=== PATIENT | female | born 1980 | race Caucasian/White ===

== ENCOUNTER 2018-04-26 09:40 | Emergency (ER) | payer SELFPAY ==
--- NOTE | 2018-04-26 10:19 | ER Document Report ---
ED Medical Screen (RME) - General Chief Complaint: Vaginal Bleeding Stated Complaint: VAGINAL BLEEDING Time Seen by Provider: 04/26/18 10:14 Mode of Arrival: Ambulatory Information source: Patient Notes: 37-year-old female presents with complaint of vaginal bleeding that occurred after sexual activity. Patient reports a positive home test 5 days ago. She is unsure when her last menstrual period was. I have greeted and performed a rapid initial assessment of this patient. A comprehensive ED assessment and evaluation of the patient, analysis of test results and completion of medical decision making process we will be contacted by additional ED providers. PHYSICAL EXAMINATION: Vital signs reviewed GENERAL: Well-appearing, well-nourished and in no acute distress. LUNGS: No respiratory distress Musculoskeletal: Normal range of motion NEUROLOGICAL: Normal speech, normal gait. PSYCH: Normal mood, normal affect. SKIN: Warm, Dry, normal turgor, no rashes or lesions noted. TRAVEL OUTSIDE OF THE [place] IN LAST 30 DAYS: No - HPI Onset: Yesterday Onset/Duration: Sudden Quality of pain: Achy Associated Symptoms: Vaginal bleeding Similar symptoms previously: Yes Recently seen / treated by doctor: No - Related Data Smoking: Non-smoker Frequency of alcohol use: None Drug Abuse: None Allergies/Adverse Reactions: cefuroxime [From Ceftin] Allergy (Verified 04/26/18 09:44) meperidine [From Demerol] Allergy (Verified 04/26/18 09:44) prochlorperazine [From Compazine] Allergy (Verified 04/26/18 09:44) quinine Allergy (Verified 04/26/18 09:44) shellfish derived Allergy (Verified 04/26/18 09:44) Physical Exam - Vital signs Vitals: Temp Pulse Resp BP Pulse Ox 98.1 F 103 H 20 133/82 H 99 04/26/18 09:53 04/26/18 09:53 04/26/18 09:53 04/26/18 09:53 04/26/18 09:53 Course - Vital Signs Vital signs: Temp Pulse Resp BP Pulse Ox 98.1 F 103 H 20 133/82 H 99 04/26/18 09:53 04/26/18 09:53 04/26/18 09:53 04/26/18 09:53 04/26/18 09:53
[2018-04-26 11:17] LABS: APPEARANCE,URINE SLIGHTLY-CLOUDY; BILIRUBIN,URINE NEGATIVE (NEGATIVE); COLOR,URINE YELLOW; GLUCOSE, URINE NEGATIVE (NEGATIVE); KETONES,URINE NEGATIVE (NEGATIVE); LEUKOCYTE ESTERASE,URINE LARGE (NEGATIVE); NITRITE,URINE NEGATIVE (NEGATIVE); PROTEIN,URINE NEGATIVE (NEGATIVE); URINE SPECIFIC GRAVITY 1.008; UROBILINOGEN,URINE NEGATIVE mg/dL (<2.0)
--- NOTE | 2018-04-26 12:17 | ER Document Report ---
ED GI/ - General Chief Complaint: Vaginal Bleeding Stated Complaint: VAGINAL BLEEDING Time Seen by Provider: 04/26/18 10:14 Mode of Arrival: Ambulatory Notes: Patient is and had sexual relations this morning and noted some blood on her partner's penis. She also felt some "tightness" in the lower pelvic region of her abdomen. She did not have any further bleeding, but did notice some when she wiped over an ultrasound. Patient is not sure when her last period occurred. She had a couple of days of spotting February 09 in the same couple of days of spotting March 14. This is patient's seventh , she has 1 living child. Has had 4 miscarriages and 2 abortions. Patient has severe gastroparesis and has a G and a J-tube that she alternates placement and tube feedings. Does not tolerate food very well. TRAVEL OUTSIDE OF THE [place] IN LAST 30 DAYS: No - Related Data Allergies/Adverse Reactions: cefuroxime [From Ceftin] Allergy (Verified 04/26/18 09:44) meperidine [From Demerol] Allergy (Verified 04/26/18 09:44) prochlorperazine [From Compazine] Allergy (Verified 04/26/18 09:44) quinine Allergy (Verified 04/26/18 09:44) shellfish derived Allergy (Verified 04/26/18 09:44) Past Medical History - General Information source: Patient Last Menstrual Period: 03/14/18 - Social History Smoking Status: Never Smoker Chew tobacco use (# tins/day): No Frequency of alcohol use: None Drug Abuse: None Family History: Reviewed & Not Pertinent Patient has suicidal ideation: No Patient has homicidal ideation: No Neurological Medical History: Reports: Hx Seizures - not currently on medication GI Medical History: Reports: Other - Gastroparesis for which she has a GJ tube. Review of Systems - Review of Systems Notes: REVIEW OF SYSTEMS: CONSTITUTIONAL : Denies fever. EENT: Denies eye, ear, nose or mouth or throat pain or other symptoms. CARDIOVASCULAR: Denies chest pain. RESPIRATORY: Denies cough, chest congestion, or shortness of breath. GASTROINTESTINAL: See HPI. GENITOURINARY: See HPI. MUSCULOSKELETAL: Denies back or neck pain. Denies joint pain or swelling. SKIN: Denies rash or skin lesions. NEUROLOGICAL: Denies LOC or altered mental status. Denies headache. Denies sensory loss or motor deficits. ALL OTHER SYSTEMS REVIEWED AND NEGATIVE. Physical Exam - Vital signs Vitals: Temp Pulse Resp BP Pulse Ox 98.1 F 103 H 20 133/82 H 99 04/26/18 09:53 04/26/18 09:53 04/26/18 09:53 04/26/18 09:53 04/26/18 09:53 Interpretation: Normal Notes: PHYSICAL EXAMINATION: GENERAL: Well-appearing, in no acute distress. Vital signs are all HEAD: Atraumatic, normocephalic. EYES: Pupils equal round and reactive to light, extraocular movements intact. NECK: Normal range of motion, supple. LUNGS: Breath sounds clear and equal bilaterally. HEART: Regular rate and rhythm without murmurs. ABDOMEN: Soft, nontender. No guarding or rebound. No masses. BACK: No tenderness throughout entire back. EXTREMITIES: Normal range of motion without pain. NEUROLOGICAL: Normal speech, normal gait. Normal sensory, motor, and reflex exams. Awake, alert, and oriented x3. Cranial nerves normal. PSYCH: Normal mood, normal affect. SKIN: Warm, dry, no rashes. Course - Re-evaluation Re-evalutation: 04/26/18 12:38 Quantitative hCG is 3131. Blood type O+. - Vital Signs Vital signs: Temp Pulse Resp BP Pulse Ox 98.1 F 103 H 20 133/82 H 99 04/26/18 09:53 04/26/18 09:53 04/26/18 09:53 04/26/18 09:53 04/26/18 09:53 - Laboratory Laboratory results interpreted by me: 04/26/18 04/26/18 09:50 11:33 Beta HCG, Quant 3131.30 H Urine Blood LARGE H Ur Leukocyte Esterase LARGE H Urine HCG, Qual POSITIVE H - Diagnostic Test Radiology reviewed: Image reviewed, Reports reviewed - Patient's ultrasound shows a 6-week gestation with a living IUP, heart rate 84, otherwise normal findings. Discharge - Discharge Clinical Impression: , Vaginal spotting Condition: Stable Disposition: HOME, SELF-CARE Additional Instructions: : You are . care is best started as early in as possible. If you're unsure about continuing this , you should discuss this with your physician or with dialer at [facility]. You should take only medications approved by your physician. Acetaminophen can safely be taken for minor pains. As a rule, medication for chronic conditions such as asthma or seizures can safely be continued. You should discuss with the physician every medicine you take. Any regular exercise program can be continued. Talk to your physician, however, before engaging in competitive or demanding sports. Alcohol, smoking, and "street drugs" are dangerous to your baby. Cocaine is especially dangerous. Don't use any illicit drugs! BLEEDING DURING EARLY : You have been evaluated for passing blood while . While we take this symptom very seriously, most women with your degree of bleeding will go on to have a perfectly normal baby. At this time, there is no indication that a miscarriage will occur. (A miscarriage occurs when the fetus is abnormal. There is no medicine or treatment to prevent it.) A more serious cause of bleeding is tubal (or ectopic) . An ultrasound usually can show whether the is in the uterus or in the tube. Sometimes in early , no fetus is seen. In this case, careful follow-up, including repeat blood tests and repeat ultrasound, is necessary. Do not douche or have sex for at least a week, or until OK'd by the doctor. Don't use tampons. Call the doctor or return for re-examination if there is an increase in bleeding or cramping, extreme weakness, fainting, new abdominal pain, fever, or passage of tissue. THREATENED MISCARRIAGE: You have been evaluated for a possible miscarriage. At this time, there is no indication that a miscarriage will occur. Most women with your symptoms will go on to have a perfectly normal baby. However, careful observation will be necessary. A miscarriage occurs when the fetus is abnormal. There is no medicine or treatment for it. You should rest in bed until the symptoms have resolved. Do not douche or have sex for at least a week, or until OK'd by the doctor. Call the doctor or return for re-examination if there is an increase in bleeding or cramping, or passage of tissue. Your ultrasound shows a living fetus in the uterus. Heart rate of 84, which is slightly low and of questionable significance. No other abnormalities. There advised not to participate in sexual activity for 10-14 days. Follow-up with OB. FOLLOW-UP CARE: If you have been referred to a physician for follow-up care, call the physicians office for an appointment as you were instructed or within the next two days. If you experience worsening or a significant change in your symptoms (very heavy bleeding with large clots of blood, passage of tissue, more severe abdominal / pelvic pain or cramping, feeling faint or severe weakness, fever, etc.), notify the physician immediately or return to the Emergency Department at any time for re-evaluation. OBSTETRIC-GYNECOLOGIC (OB-CONTROL ROOM HELPER) PHYSICIANS IN [place]: [facility] [address] [place] [address] [phone]
--- NOTE | 2018-04-26 12:20 | RADIOLOGY REPORT (SQ) ---
EXAM DESCRIPTION: U/S OB TRANSVAGINAL W/O DOP COMPLETED DATE/TIME: 04/26/2018 12:06 pm REASON FOR STUDY: bleeding + preg COMPARISON: None. TECHNIQUE: Transvaginal static and realtime grayscale images acquired of the pelvis. Additional matthew cted spectral and color Doppler images recorded. All images stored on PACs. bHCG: Not available. CLINICAL DATES: Unknown. LIMITATIONS: None. FINDINGS: FETUS: Single Living intrauterine . ULTRASOUND EGA: 6 week 0 day. ULTRASOUND RODRIGO: 12/20/2018. EFW: Not applicable less than 20 weeks. CRL: 0.36 cm. FHR: 84 beats per minute. SURVEY: No visualized anomalies. AMNIOTIC FLUID: Adequate amount. PLACENTA: Not yet developed due to early gestation. SUBCHORIONIC BLEED: No. SIZE OF BLEED: Not applicable. UTERUS: No masses. No anomalies. CERVICAL LENGTH: 2.5 cm. Closed. RIGHT ADNEXA: Ovary not identified due to poor acoustical window. No adnexal free fluid. No adnexal masses. LEFT ADNEXA: Ovary not identified due to poor acoustical window. No adnexal free fluid. No adnexal masses. FREE FLUID: None. OTHER: No other significant finding. IMPRESSION: LIVING INTRAUTERINE . EGA 6 WEEK 0 DAY. THE HEARTBEAT IS SOMEWHAT SLOW, MEASURING 84 BEATS PER MINUTE. THIS IS NONSPECIFIC BUT SHOULD CONSIDER CLINICAL FOLLOW-UP INDICATED. Trimester of : First - 0 to 13 weeks. TECHNICAL DOCUMENTATION: JOB ID: [id number] [employer]- All Rights Reserved rev Reading location - IP/workstation name: [email or web address]
[2018-04-26 13:02] VITALS: BP 124/76
== END 2018-04-26 12:40 | disposition home or self-care (01) ==
LOC: ER 09:40
DX: O20.9 Hemorrhage in early pregnancy, unspecified (principal); Z93.1 Gastrostomy status; Z3A.01 Less than 8 weeks gestation of pregnancy
CPT/HCPCS: 36415; 76817; 81001; 81025; 84702; 86900; 86901; 99284